=== PATIENT | male | born 1995 | race Caucasian/White ===

== ENCOUNTER 2020-02-13 17:00 | Emergency (ER) | payer BC ==
[~2020-02-13] VITALS: Ht 182.9 cm; Wt 86.2 kg
[2020-02-13 17:00] VITALS: BP_SYST 141
--- NOTE | 2020-02-13 17:00 | NUR ---
BROUGHT BACK TO BED #5 AND TRIAGED. REPORT GIVEN TO DODIE
--- NOTE | 2020-02-13 17:35 | NUR ---
DR LI AT BEDSIDE TO ASSESS. PT CALM ALERT, NO DISTRESS
--- NOTE | 2020-02-13 17:45 | NUR ---
CALM, AMBUTATORY , NO DYSPNEA, SKIN WARM AND DRY, GOOD COLOR. COMMUNICATES CLEARLY IN FULL COMPLETE SENTENCES. DENIES PAIN , STATED HE IS TOLERATING PO WELL. NORMAL PO INTAKE SINCE EPISODE OF EPIDGASTRIC PRESSURE. NO GI COMPLAINTS.
[2020-02-13 18:23] LABS: CALCIUM 9.4 mg/dL (8.4-11.0); CREATININE 0.85 mg/dL (0.55-1.30); POTASSIUM 3.9 mmol/L (3.5-5.1)
[2020-02-13 18:28] LABS: ALBUMIN 4.4 g/dL (3.4-4.8); TOTAL BILIRUBIN 0.9 mg/dL (0.0-1.0)
[2020-02-13 18:35] LABS: BASOPHILS # (AUTO) 0.1 K/uL (0.0-0.2); BASOPHILS % (AUTO) 0.7 % (0.0-2.0); EOSINOPHILS # (AUTO) 0.1 K/uL (0.0-0.4); EOSINOPHILS % (AUTO) 0.9 % (0.0-4.0); HEMATOCRIT 45.4 % (36-54); HEMOGLOBIN 16.1 g/dL (14.0-18.0); LYMPHOCYTES # (AUTO) 1.7 K/uL (1.0-5.5); LYMPHOCYTES % (AUTO) 13.3 % (20.5-51.5); MEAN CORPUSCULAR HEMOGLOBIN 33 pg (27-31); MEAN CORPUSCULAR HGB CONC 35 % (32-36); MEAN CORPUSCULAR VOLUME 93 fL (79.0-98.0); MONOCYTES # (AUTO) 0.7 K/uL (0.0-1.0); MONOCYTES % (AUTO) 5.7 % (1.7-9.3); NEUTROPHILS # (AUTO) 9.9 K/uL (1.8-7.7); NEUTROPHILS % (AUTO) 79.4 % (40.0-70.0); PLATELET COUNT (AUTO) 210 K/uL (130-430); RED BLOOD CELL COUNT(AUTO) 4.89 MIL/uL (4.2-6.2); RED CELL DISTRIBUTION WIDTH 12.6 % (9.0-15.0); WHITE BLOOD COUNT (AUTO) 12.5 K/uL (4.8-10.8)
--- NOTE | 2020-02-13 19:00 | NUR ---
calm, alert, resp unlabored, skin warm and dry. swalling w/out difficulty no distress,
[2020-02-13] MEDS ORDERED: MAG HYDROX/AL HYDROX/SIMETH 30 ML, DICYCLOMINE HCL 20 MG, LIDOCAINE VISCOUS 2% 15ML (PO... PO ONE ×3 (19:30)
--- NOTE | 2020-02-13 19:44 | NUR ---
MEDICATED WITH GI COCKTAIL. TOLERATED WELL, NO DIFFICULTY
[2020-02-13 19:58] VITALS: BP_SYST 138
--- NOTE | 2020-02-13 19:58 | NUR ---
Patient given written and verbal discharge instructions and verbalizes understanding. ER MD discussed with patient the results and treatment provided. Patient in stable condition. ID arm band removed. Rx of Nexium given. Patient educated on pain management and to follow up with PMD. Pain Scale 0/10 Opportunity for questions provided and answered. Medication side effect fact sheet provided.
== END 2020-02-13 19:59 | disposition home or self-care (01) ==
LOC: SED 17:00
DX: K29.70 Gastritis, unspecified, without bleeding (principal); F17.200 Nicotine dependence, unspecified, uncomplicated; F12.90 Cannabis use, unspecified, uncomplicated
CPT/HCPCS: 36415; 71045; 74018; 80053; 82150; 83690; 85025; 99284; J2001